=== PATIENT | female | born 2005 | race Caucasian/White ===

== ENCOUNTER 2025-01-28 14:19 | Outpatient (AMB) | payer BC, OTHER, SELFPAY ==
--- NOTE | 2025-01-28 14:44 | A.OFFVIS_ITS ---
VS Expanded 01/28/25 14:45 01/28/25 14:56 Height 5 ft 3 in 5 ft 3 in Weight 194 lb 0.108 oz 194 lb BMI 34.4 34.4 Intake Visit Reasons: Obesity Nutrition Presentation Details: Pt presents for MNT for obesity Pt reports gradual weight gain, from 145 lbs in April 2024 to currently 194 lbs Works in construction food frequency fish : 0-2/m fruits: 4/d yogurts: 1/d eating : 4 wks energy drink in AM 5am sandwich 9am : apples yogurt lunch: leftover or fast food dinner steak/potatoes, juice OXU-Rwjiqhg-Ok.Jeor Equation Height: 5 ft 3 in Weight: 194 lb Resting Metabolic Rate: 1614.89 Calculated Activity Level: Sedentary Calories Needed to Maintain Weight: 1937.87 Diagnosis Nutrition problem #1: food nutri know defi As related to (etiology) #1: diagnosis As evidenced by (sign/symptom) #1: knowledge deficit of diet Assessment & Plan Assessment & Plan (1) Obesity (BMI 30.0-34.9): Code(s): E66.811 - Obesity, class 1 Category: Medical Plan: Wt: 88 Kg ( 02/04 ) Est kcal needs as per MSJ: 1900 (40% carb, 30% protein/fat) Est fluid needs as per 25-30 ml/d: 2600 Est prot per day as per 1 g/kg bw: 90 Recommend fiber intake : 8-10 g per day and gradually increase to 25-28 g per day for women and 35-38 g for men or as tolerated Recommend sodium intake per day : less than 2300 mg Educated patient on: ( R = reviewed V = verbalizes understanding N/R = needs review N/A = not applicable * Food sources of carbohydrate, adequate serving sizes and its role in various health conditions: R * Differences between complex carbohydrates a simple carbohydrates, role of fiber in diet: R * Lean protein sources of foods: R * hydration: R * Differences between types of fats and role in diet (mono on saturated fat fatty acids, saturated fatty acids, trans fats): R V N/R * Food sources of sodium in salt and healthy modifications for heart health in kidney health: R V R/V * Vitamins and minerals: R V N/R * Healthy plate method concept: R * Physical activity: Benefits a precaution: R Patient Instructions: work on reducing total carbs to 45-60 g per meal and 0-20 g as snack (reducing on sugars from beverages/snacks /empty calorie foods Chose foods lower in fat : baked, steamed, as example Coding Level of Care Code Nutr Indiv Intake (70967) Diagnoses Obesity (BMI 30.0-34.9) E66.811 Time Spent (min) 30
[2025-01-28 14:45] VITALS: BMI 34.4
--- OUTSIDE RECORDS SUMMARY | 2025-01-28 15:04 | XMS_ITS | Clinical Summary ---
Author Organization [address] Address [address] [place] [address] Phone Care Team Providers Care Satellite Project Site Monitor Name Role Phone Juan Francisco Reich MD Primary Care Provider Allergies Active Allergy Reactions Criticality Noted Date Comments Pollen Extracts Dry Eye,Headache,Itc christophe,Runny nose,Sore Throat,Stuffy Nose,Swallowing Problem 12/05/2024 Medications norethindrone-et hinyl estradiol-iron (, ,) 1.5 mg-30 mcg (21)/75 mg (7) per tablet Take 1 tablet by mouth 1 (one) time each day. 12/31/2023 Active Active Problems Problem Noted Date Diagnosed Date Class 1 obesity due to exces s calories with serious comorbidity and body mass index (BMI) of 32.0 to 32.9 in adult 12/05/2024 ADHD (attention deficit hyperactivity disorder) 07/07/2011 Overview (04/10/2024): 01/23: No longer taking meds Last Assessment & Plan: Increased moodiness on adderall, Will change to concerta 18 mg, Recheck 1 month Resolved Problems Problem Noted Date Diagnosed Date Resolved Date Childhood obesity 01/26/2013 08/16/2024 Cough due to bronchospasm 09/21/2012 Pneumonia 09/21/2012 08/16/2024 Encounters Date Type Department Care Team Description 12/05/2024 3:30 PM EDT Office Visit Adult Medicine [address] [phone] Juan Francisco Reich MD Class 1 obesity due to excess calories with serious comorbidity and body mass index (BMI) of 32.0 to 32.9 in adult (Primary Dx); Hypercholesterolemia from Last 3 Months Immunizations Name Administration Dates Next Due DTaP (Infanrix) 6wks to less than 7yo ,2005,04/29/2004,02/12,2003 [id number] (Pentacel) 2mo to less than 5yo 2005,04/29/2004,02/13/2004,12/08 HepB-CpG (Heplisav-B) 18yo and older 04/24/2024, 03/27/2024 Hepatitis B Pediatric (Enger ix B; Recombivax HB) to less than 20 yo 09/14/2004,2003,2003 IPV Inactivated polio (Ipol) 6wks and older 11/02/2007,04/29/2004,02/13/2004,12/08 MMR, measles mumps and rubel la Live (Priorix; M-M-R II) 12mo and older 12/20/2008,10/29/2004 Meningococcal MCV4P 03/11/2021 Pneumococcal Conjugate Vacci ne, 7 Valent 2005,04/29/2004,02/13/2004,12/08 Tdap Tetanus diptheria acell ular pertussis (Boostrix; Adacel) 7yo and older 08/16/2024 Varicella live (Varivax) 12m o and older 12/20/2008,10/29/2004 Surgical History Surgery Date Site/Laterality Comments OTHER SURGICAL HISTORY PROCEDURE: DENIES PREVIOUS SURGERY Medical History Medical History Date Comments Unspecified otitis media 10/14 DX:Unsp ecified otitis media Influenza B 08/19 DX:Influenza B Cough due to bronchospasm 09/21/2012 Childhood obesity 01/26/2013 ADHD (attention deficit hype ractivity disorder) Family History Medical History Relation Name Comments Diabetes Half-Sister 1 mat Diabetes Maternal Grandfather Diabetes Maternal Grandmother ADD / ADHD Mother endometriosis Other: HIV Paternal Grandfather No Known Problems Paternal Grandmother Relation Name Status Comments Father Alive Half-Sister 1 mat Alive Half-Sister 2 pat Alive Maternal Grandfather Alive Maternal Grandmother Alive Mother Alive Paternal Grandfather Paternal Grandmother Alive Social History Tobacco Use Types Packs/Day Years Used Date Smoking Tobacco: Never Smokeless Tobacco: Never Tobacco Cessation:Counseling Given: Not Answered Alcohol Use Standard Drinks/Week Comments Not Currently 0 (1 standard drink = 0.6 oz pur e alcohol) Housing Instability Answer Date Recorde d Are you worried that in the next 2 months you may not have stable housing? No 08/09/2024 Food Access & Nutrition Answer Date Rec orded Do you have access to a vari ety of food including fruits and vegetables? Yes 08/09/2024 Access to Healthcare Answer Date Record ed Within the last 3 months, ho w many times did you visit the emergency department for your medical care? 0 08/09/2024 Health Literacy Answer Date Recorded How often do you need to hav e someone help you when you read instructions, pamphlets, or other written material from your doctor or pharmacy? Never 08/09/2024 Caregiver: How often do you need to have someone help you when you read instructions, pamphlets, or other written material from your doctor or pharmacy? Not on file 08/09/2024 Financial Risk Answer Date Recorded How hard is it for you to pa y for the very basics like food, housing, medical care, and air conditioning / heating? Very hard 08/09/2024 Transportation Answer Date Recorded Has the lack of transportati on kept you from meetings, work, or from getting things needed for daily living? No Has the lack of transportati on kept you from medical appointments or from getting medications? No 08/09/2024 Social Isolation Answer Date Recorded How often do you feel lonely or isolated from th ose around you? Never 08/09/2024 Food Risk Answer Date Recorded Within the past 12 months we worried whether our food would run out before we got money to buy more. Never true 08/09/2024 Within the past 12 months th e food we bought just didn't last and we didn't have money to get more. Never true 08/09/2024 Dependent Care Answer Date Recorded Do you need help finding or paying for care for your loved ones. For example, school child care attendant or elderly care for an older adult? No 08/09/2024 Education Answer Date Recorded Do you think completing more education or training, like finishing a GED, going to college, or learning a trade, would be helpful for you? No 08/09/2024 Employment and Income Answer Date Recor ded During the last four weeks, have you been actively looking for work? No 08/09/2024 Living Situation Answer Date Recorded What is your living situation? 0 08/09/2024 Comments No Sex and Gender Information Value Date Recorded Sex Assigned at Female 08/09/2024 12:27 PM EST Legal Sex Female 11:11 AM EST Gender Identity Female 08/09/2024 12:27 PM EST Sexual Orientation Not on file Obstetrics History Last Filed Vital Signs Vital Sign Reading Time Taken Comments Blood Pressure 113/60 12/05/2024 3:21 PM EDT Pulse 78 12/05/2024 3:21 PM EDT Temperature 36.3 C (97.4 F) 12/05/2024 3:21 PM EDT Respiratory Rate 15 12/05/2024 3:21 PM EDT Oxygen Saturation 99% 12/05/2024 3:21 PM EDT Inhaled Oxygen Concentration - - Weight 83.6 kg (184 lb 6.4 oz) 12/05/2024 3:21 P M EDT Height 160 cm (5' 3 ) 12/05/2024 3:21 PM EDT Body Mass Index 32.66 12/05/2024 3:21 PM EDT Plan of Treatment Upcoming Encounters Date Type Department Care Team (Late st Contact Info) Description 02/07/2025 12:45 PM EDT Office Visit Adult Medicine [address] [phone] Kelly Strong PA [address] [place], [place] 08/19/2025 4:00 PM EDT Office Visit Adult Medicine [address] [phone] Juan Francisco Reich MD [address] [place] [address] Health Maintenance Due Date Last Done Comments Gonorrhea/Chlamydia Screening 2003 HPV Vaccines (1 - 3-dose series) 10/11/2018 COVID-19 Vaccine ( season) 2024 Cervical Cancer Screening: Pap Smear 10/11/2024 Influenza Vaccine (#1) 2025 Social Influencers of Health Screening 08/09/2025 08/09/2024 Annual Well Child Visit (3-21 years old) 08/16/2025 08/16/2024, 08/16/2024, 01/26/2013, Additional history exists Cholesterol Screening (Lipid Panel) 08/16/2029 08/16/2024 DTaP,Tdap,and Td Vaccines (7 - Td or Tdap) 08/16/2034 08/16/2024, 11/02/2007, 2005, Additional history exists HIB Vaccines Completed 2005, 04/13, 02/13/2004, Additional history exists Pneumococcal Vaccine: Pediatrics (0 to 5 Years) and At-Risk Patients (6 to 49 Years) Completed 2005, 04/29/2004, 02/13/2004, Additional history exists IPV Vaccines Completed 11/02/2007, 07/2005, 04/29/2004, Additional history exists MMR Vaccines Completed 12/20/2008, 10/29/2004 Varicella Vaccines Completed 12/20/2008, 10/29/2004 Meningococcal ACWY Vaccine Completed 03/11/2021 Hepatitis B Vaccines Completed 04/24/2024, 03/27/2024, 09/14/2004, Additional history exists Depression Screening Completed 08/09/2024 HIV Screening Completed 08/16/2024 Hepatitis C Screening Completed 08/16/2024 Hepatitis A Vaccines Aged Out No long er eligible based on patient's age to complete this topic Meningococcal B Vaccine Discontinued RSV Immunization Patients Under 20 months Aged Out No longer eligible based on patient's age to complete this topic Procedures Procedure Name Priority Date/Time Associated Diagnosis Comments HEPATITIS C ANTIBODY Routine 08/16/2024 12:06 PM EST Need for hepatitis C screening test HIV 1, 2 ANTIBODY, P24 ANTIGEN WITH REFLEX TO DIFFERENTIATION Routine 08/16/2024 12:06 PM EST Encounter for screening for HIV LIPID PANEL WITH REFLEX TO DIRECT LDL Routine 08/16/2024 12:06 PM EST Screening for lipid disorders from Last 3 Months or Most Recently Relevant to Health Maintenance Results * Hepatitis C antibody (08/16/2024 12:06 PM EST) Hepatitis C Antibody Negative Negative LAB CHEMISTRY METHOD 08/16/2024 3:05 PM EST [facility] Blood Venous blood specimen / Unknown Venipuncture / Unknown 08/16/2024 12:06 PM EST 08/16/2024 12:06 PM EST us Juan Francisco Reich MD LAB BLOOD ORDERABLES F inal Result Performing Organization Address [facility] Co de Phone Number [facility] [address] [place] [address], [place] [phone] * HIV 1,2 antibody, p24 antigen with reflex to differentiation (08/16/2024 12:06 PM EST) HIV Combo AB/AG Negative Negative LAB CHEMISTRY METHOD 08/16/2024 3:05 PM EST [facility] Blood Venous blood specimen / Unknown Venipuncture / Unknown 08/16/2024 12:06 PM EST 08/16/2024 12:06 PM EST Narrative [facility] - 08/16/2024 3:05 PM EST This assay is a 4th generation assay allowing for earlier detection of HIV infection by detecting the presence of the HIV-1 p24 antigen as well as the traditional antibodies to HIV type 1 (including group O) and type 2. Use of a 4th generation assay is the current CDC recommendation for HIV screening. us Juan Francisco Reich MD LAB BLOOD ORDERABLES F inal Result Performing Organization Address [facility]/ZIP Co de Phone Number [facility] [address] [place] [address], [place] [phone] * (ABNORMAL) Lipid panel with reflex to direct LDL (08/16/2024 12:06 PM EST) Cholesterol 201(H) 0 - 200 mg/dL LAB CHEMISTRY METHOD 08/16/2024 2:18 PM EST [facility] Triglycerides 70 0 - 150 mg/dL LAB CHEMISTRY METHOD 08/16/2024 2:18 PM EST [facility] HDL 77 >=40 mg/dL LAB CHEMISTRY METHOD 08/16/2024 2:18 PM EST [facility] LDL Calculated 110(H) 0 - 100 mg/dL LAB CHEMISTRY METHOD 08/16/2024 2:18 PM [facility] VLDL Cholesterol Alejandro 14 mg/dL LAB CHEMISTRY METHOD 08/16/2024 2:18 PM EST [facility] Non HDL Chol. (LDL+VLDL) 124 <145 mg/dL LAB CHEMISTRY METHOD 08/16/2024 2:18 PM EST [facility] Chol/HDL Ratio 2.6 0.0 - 4.4 LAB CHEMISTRY METHOD 08/16/2024 2:18 PM [facility] Blood Venous blood specimen / Unknown Venipuncture / Unknown 08/16/2024 12:06 PM EST 08/16/2024 12:06 PM EST Juan Francisco Reich MD LAB BLOOD ORDERABLES F inal Result [facility] [address] [place] [address], [place] [phone] from Last 3 Months or Most Recently Relevant to Health Maintenance Insurance [facility] ([facility]) Care Teams Satellite Project Site Monitor Relationship Specialty Start Date End Date Juan Francisco Reich MD [address] [place] [address] PCP - General 02/08/24
[2025-01-30 10:23] VITALS: BMI 34.4
== END 2025-01-28 15:27 | disposition home or self-care (01) ==
PROVIDERS: PCP Internal Medicine; Visit Provider Dietitian, Registered
DX: E66.811 Obesity, class 1 (principal)

== ENCOUNTER → 2025-01-28 14:19 | Outpatient (BNVA) | payer BC, OTHER, SELFPAY | PROVIDERS: PCP Internal Medicine; Visit Provider Dietitian, Registered | DX: E66.811 Obesity, class 1 (principal); Z68.34 Body mass index [BMI] 34.0-34.9, adult | CPT/HCPCS: 97802 ==